=== PATIENT | male | born 1950 | race Caucasian/White ===

== ENCOUNTER 2017-04-30 13:23 | Inpatient (IN) | payer OTHER ==
[~2017-04-30] VITALS: Ht 167.6 cm; Wt 86.0 kg
[2017-04-30] VITALS (10 sets, daily range): BP systolic 106–138; BP diastolic 68–97
[2017-04-30 13:56] LABS: HEMATOCRIT 38.5 % (38.0-50.0); MCH 28.2 PG (29.0-34.0); MEAN PLAT.VOLUME 9.2 uM^3 (9.0-12.4); PLATELET COUNT 263 K/uL (156-360); RBC DIS.WIDTH-CV 13.3 % (11.8-14.6); RBC DIS.WIDTH-SD 39.9 % (39-53); RED BLOOD COUNT 4.64 M/uL (4.00-5.50); WHITE BLOOD COUNT 8.1 K/uL (4.1-10.2)
[2017-04-30 14:18] LABS: ANION GAP 11 MEQ/L (2-14); CHLORIDE 101 MEQ/L (99-109); POTASSIUM 3.6 MEQ/L (3.7-5.4); SAMPLE HEMOLYSIS CHECK 0; SAMPLE ICTERIC CHECK 0; SAMPLE LIPEMIA CHECK 0; SODIUM 133 MEQ/L (136-147)
[2017-04-30 14:23] LABS: GFR ESTIMATE (CALCULATED) > 59 mL/min/; GLUCOSE 111 mg/dL (70-99); UREA NITROGEN (BUN) 10 mg/dL (9-23)
[2017-04-30 14:28] LABS: TROP-I INTERPRETATION NEGATIVE; TROPONIN-I 0.15 ng/mL (0.0-0.30)
[2017-04-30 16:06] LABS: BASE EXCESS -1.5 mEq/L (-3 to +3); BICARBONATE 21.5 mEq/L (22-26); CARBOXY HGB 1.8 % (0-5); METHEMOGLOBIN 1.1 % (0-1.5); PCO2 31 mm Hg (35-45); PO2 80 mm Hg (80-100); pH 7.45 (7.35-7.45)
[2017-04-30 16:10] LABS: COMMENTS - BLOOD GASES A+C+; DEVICE NC; O2 FLOW 4 L/MIN; SITE LR; TOTAL RESP RATE 36 resp/min
[2017-04-30 16:10] LABS: TROP-I INTERPRETATION NEGATIVE; TROPONIN-I 0.17 ng/mL (0.0-0.30)
[2017-04-30 19:33] LABS: METH RESISTANT S AUREUS PCR NEGATIVE (NEGATIVE); PROBE CHECK PASS; SPECIMEN PROCESSING CONTROL PASS
[2017-04-30 20:57] LABS: DIRECT BILIRUBIN 0.2 mg/dL (0.0-0.3); TOTAL BILIRUBIN 0.7 MG/DL (0.0-1.0)
[2017-04-30 21:03] LABS: ALKALINE PHOSPHATASE 74 IU/L (3-129)
[2017-04-30 22:31] LABS: TROP-I INTERPRETATION NEGATIVE; TROPONIN-I 0.29 ng/mL (0.0-0.30)
[2017-05-01] VITALS (17 sets, daily range): BP systolic 99–140; BP diastolic 64–88
[2017-05-01 04:28] LABS: AMPHETAMINES QUANT VALUE 0 NG/ML; BARBITUATES QUANT VALUE 0 NG/ML; BENZODIAZEPINES QUANT VALUE 0 NG/ML; BENZODIAZEPINES, URINE SCREEN Negative (200 ng/mL); MARIJUANA QUANT VALUE 0 NG/ML; OPIATES QUANTITATIVE VALUE 0 NG/ML; PHENCYCLIDINE QUANT VALUE 0 NG/ML
[2017-05-01 05:52] LABS: HEMATOCRIT 36.5 % (38.0-50.0); MCH 28.4 PG (29.0-34.0); MCHC 33.4 G/DL (30.0-36.0); MCV 84.9 FL (86-99); MEAN PLAT.VOLUME 9.5 uM^3 (9.0-12.4); PLATELET COUNT 258 K/uL (156-360); RBC DIS.WIDTH-CV 13.5 % (11.8-14.6); RBC DIS.WIDTH-SD 41.7 % (39-53); WHITE BLOOD COUNT 8.8 K/uL (4.1-10.2)
[2017-05-01 06:14] LABS: INTER. NORMALIZED RATIO 1.2; PROTHROMBIN TIME 11.8 (9.2-11.2)
[2017-05-01 06:15] LABS: ALKALINE PHOSPHATASE 58 IU/L (3-129); ANION GAP 9 MEQ/L (2-14); CHLORIDE 103 MEQ/L (99-109); GFR ESTIMATE (CALCULATED) > 59 mL/min/; GLUCOSE 95 mg/dL (70-99); MAGNESIUM 2.2 mg/dl (1.3-2.7); SAMPLE HEMOLYSIS CHECK 0; SAMPLE ICTERIC CHECK 0; SAMPLE LIPEMIA CHECK 0; SODIUM 136 MEQ/L (136-147); TOTAL BILIRUBIN 0.7 MG/DL (0.0-1.0); UREA NITROGEN (BUN) 8 mg/dL (9-23)
[2017-05-01 06:24] LABS: TROP-I INTERPRETATION NEGATIVE
[2017-05-01 12:46] LABS: TROP-I INTERPRETATION NEGATIVE; TROPONIN-I 0.21 ng/mL (0.0-0.30)
[2017-05-01 18:27] LABS: TROP-I INTERPRETATION NEGATIVE; TROPONIN-I 0.22 ng/mL (0.0-0.30)
[2017-05-02] VITALS (8 sets, daily range): BP systolic 105–136; BP diastolic 63–89
[2017-05-02 09:43] LABS: ANION GAP 10 MEQ/L (2-14); CHLORIDE 102 MEQ/L (99-109); GFR ESTIMATE (CALCULATED) > 59 mL/min/; GLUCOSE 120 mg/dL (70-99); SAMPLE HEMOLYSIS CHECK 0; SAMPLE ICTERIC CHECK 0; SAMPLE LIPEMIA CHECK 0; SODIUM 137 MEQ/L (136-147); UREA NITROGEN (BUN) 14 mg/dL (9-23)
[2017-05-03 03:47] VITALS: BP 123/76
[2017-05-03 08:25] VITALS: BP 138/96
[2017-05-03] MEDS ORDERED: LISINOPRIL5 MG PO (08:29)
[2017-05-03] MEDS ORDERED: ATORVASTATIN CA40 MG PO (08:29)
[2017-05-03] MEDS ORDERED: CARVEDILOL6.25 MG PO (08:29)
[2017-05-03] MEDS ORDERED: FUROSEMIDE40 MG PO (08:29)
[2017-05-03] MEDS ORDERED: ASPIR-LOW81 MG PO (08:29)
== END 2017-05-03 10:15 | disposition home health service (06) | DRG 292 ==
LOC: EME 13:23 → 4WEST 15:37 → EDOF 15:37 → 4EAST 15:37 → EDOF 15:57 → 4WEST 17:18 → 4EAST 05-01 19:26 → 5SOUTH 05-02 20:35
PROVIDERS: Emergency Medicine; Hospitalist; Internal Medicine Critical Care Medicine
PROC: 5A09357 Assistance with Respiratory Ventilation, Less than 24 Consecutive Hours, Continuous Positive Airway Pressure (ICD-10-PCS; principal; 2017-04-30)
DX: I11.0 Hypertensive heart disease with heart failure (principal); I50.23 Acute on chronic systolic (congestive) heart failure; I16.1 Hypertensive emergency; E87.6 Hypokalemia; I25.10 Atherosclerotic heart disease of native coronary artery without angina pectoris; I25.5 Ischemic cardiomyopathy; I71.2 Thoracic aortic aneurysm, without rupture; J98.11 Atelectasis; R09.02 Hypoxemia; E66.9 Obesity, unspecified; Z87.891 Personal history of nicotine dependence; Z68.29 Body mass index [BMI] 29.0-29.9, adult
CPT/HCPCS: 36600; 71010; 71275; 80048; 80053; 80076; 80306 90; 82803; 83735; 83880; 84100; 84484; 85027; 85610; 87040; 87641; 93005; 93306; 94760; 94799; 99281; 99285; J0456; J0696; J1644; J1940; J7050

== ENCOUNTER 2017-05-15 08:45 | Inpatient (IN) | payer OTHER ==
[~2017-05-15] VITALS: Ht 167.6 cm; Wt 83.9 kg
[~2017-05-15 08:45] MED LIST: ASPIR-LOW81 MG PO; ATORVASTATIN CA40 MG PO; CARVEDILOL6.25 MG PO; FUROSEMIDE40 MG PO; LISINOPRIL5 MG PO
== END 2017-05-15 17:35 | disposition short-term general hospital (02) | DRG 287 ==
LOC: CATH 08:45 → 2SOUTH 12:56
DX: I25.10 Atherosclerotic heart disease of native coronary artery without angina pectoris (principal); I25.5 Ischemic cardiomyopathy; I11.0 Hypertensive heart disease with heart failure; I34.0 Nonrheumatic mitral (valve) insufficiency; Z79.82 Long term (current) use of aspirin; I27.2 Other secondary pulmonary hypertension; E78.5 Hyperlipidemia, unspecified; Z95.1 Presence of aortocoronary bypass graft; I50.22 Chronic systolic (congestive) heart failure
CPT/HCPCS: C1769; C1887; J1644; J2250; J3010

== ENCOUNTER 2017-06-01 17:42 | Emergency (ER) | payer OTHER ==
[~2017-06-01] VITALS: Ht 167.6 cm; Wt 82.0 kg
[2017-06-01 19:24] LABS: EOSINOPHIL (%) 3.1 % (0-5); EOSINOPHIL COUNT 0.3 K/uL (0-0.3); IMMATURE GRANULOCYTE (%) 0.6 % (0.0-0.7); IMMATURE GRANULOCYTE COUNT 0.1 K/uL; INSTRUMENT ABS NEUTROPHIL CT 6.6 K/uL; MCH 26.9 PG (29.0-34.0); MCHC 31.9 G/DL (30.0-36.0); MCV 84.4 FL (86-99); MEAN PLAT.VOLUME 9.3 uM^3 (9.0-12.4); MONOCYTE (%) 9.9 % (3-12); MONOCYTE COUNT 0.9 K/uL (0-0.8); NEUTROPHIL (%) 74.8 % (45-76); NEUTROPHIL COUNT 6.6 K/uL (1.8-6.4); PLATELET COUNT 197 K/uL (156-360); RBC DIS.WIDTH-CV 14.1 % (11.8-14.6); RBC DIS.WIDTH-SD 43.5 % (39-53); RED BLOOD COUNT 3.08 M/uL (4.00-5.50); WHITE BLOOD COUNT 8.8 K/uL (4.1-10.2)
[2017-06-01 19:31] LABS: INTER. NORMALIZED RATIO 1.7; PROTHROMBIN TIME 18.7 SEC (10.2-12.9)
[2017-06-01 19:33] LABS: PTT 32.8 SEC (25-37)
[2017-06-01 19:47] LABS: CHLORIDE 103 mEq/L (99-109); POTASSIUM 3.9 mEq/L (3.7-5.4); SODIUM 134 mEq/L (136-147)
[2017-06-01 19:49] LABS: GLUCOSE 130 mg/dL (70-99)
[2017-06-01 19:50] LABS: ANION GAP 8 MEQ/L (2-14)
[2017-06-01 19:51] LABS: TOTAL BILIRUBIN 0.8 mg/dL (0.0-1.0)
[2017-06-01 19:52] LABS: ALKALINE PHOSPHATASE 91 IU/L (3-129)
[2017-06-01 19:53] LABS: GFR ESTIMATE (CALCULATED) > 59 mL/min/
[2017-06-01 19:54] LABS: UREA NITROGEN (BUN) 12 mg/dL (9-23)
[2017-06-01 19:56] LABS: LIPASE 108 U/L (1.0-51.0)
[2017-06-01 20:14] LABS: TROP-I INTERPRETATION NEGATIVE; TROPONIN-I 0.16 ng/mL (0.0-0.30)
[2017-06-01 20:15] LABS: ADD MIUA? YES; BILIRUBIN NEGATIVE; BLOOD NEGATIVE; COLOR YELLOW ((YELLOW)); GLUCOSE (STRIP) NEGATIVE; KETONES NEGATIVE; LEUKOCYTES NEGATIVE; NITRITE NEGATIVE; PROTEIN (STRIP) NEGATIVE; SPECIFIC GRAVITY 1.016 (1.000-1.030)
[2017-06-01 20:20] LABS: BACTERIA RARE /HPF; EPITHELIAL CELLS RARE /HPF; MUCUS TRACE /LPF; RED BLOOD CELLS 0-5 /HPF (0-5); UCUL ADDED? NO; WHITE BLOOD CELLS 0-5 /HPF (0-5)
[2017-06-01 22:20] VITALS: BP 134/80
== END 2017-06-01 22:22 | disposition home or self-care (01) ==
LOC: EME 17:42
PROVIDERS: Emergency Medicine
DX: R60.0 Localized edema (principal); R33.9 Retention of urine, unspecified; I50.9 Heart failure, unspecified; Z95.1 Presence of aortocoronary bypass graft; Z95.2 Presence of prosthetic heart valve; Z87.891 Personal history of nicotine dependence; Z79.01 Long term (current) use of anticoagulants
CPT/HCPCS: 80053; 81003; 83690; 83880; 84484; 85025; 85610; 85730; 93971; 99281; 99285